=== PATIENT | male | born 1995 | race Asian ===

== ENCOUNTER 2022-09-30 23:43 | Emergency (ER) | payer SELFPAY ==
[~2022-09-30] VITALS: Ht 167.6 cm; Wt 57.3 kg
[2022-09-30 23:43] VITALS: BP 126/69
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
--- NOTE | 2022-09-30 23:43 | NUR ---
PT HAYDEN ROBERTSP, TAKEN TO CHAIR FOR PRE BOOK
--- NOTE | 2022-10-01 00:16 | NUR ---
Dr. Nunes examining patient.
[2022-10-01] MEDS ORDERED: IBUPROFEN 800 MG TAB PO ONE (00:20)
--- NOTE | 2022-10-01 00:20 | NUR ---
PATIENT REFUSED MEDICARION, ERMD NOTED.
[2022-10-01 00:25] VITALS: BP 126/69
--- NOTE | 2022-10-01 00:25 | NUR ---
Patient discharged with v/s stable. Written and verbal after care instructions given and explained. Patient verbalized understanding. Ambulatory with in custody. All questions addressed prior to discharge. Advised to follow up with PMD.
--- NOTE | 2022-10-01 00:25 | NUR ---
PATIENT BIB [facility]ICE [facility]. PATIENT EXAMINED BY DR. HOOD. PATIENT MEDICALLY CLEARED AND RELEASED IN CUSTODY IN STABLE CONDITION. ORIGINAL PRE-BOOK FORM GIVEN TO OFFICER YAMEL #[id number].
== END 2022-10-01 00:25 ==
LOC: MED 23:43
DX: M79.10 Myalgia, unspecified site (principal); J45.909 Unspecified asthma, uncomplicated; Z88.1 Allergy status to other antibiotic agents; V89.2XXA Person injured in unspecified motor-vehicle accident, traffic, initial encounter; Y93.89 Activity, other specified; Y92.89 Other specified places as the place of occurrence of the external cause; Y99.8 Other external cause status
CPT/HCPCS: 99283